=== PATIENT | female | born 2005 | race Caucasian/White ===

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

== ENCOUNTER → 2025-01-11 | Emergency (ER) | payer OTHER, SELFPAY ==
[~2025-01-11] MED LIST: Bacitracin 1 PK ONE; Ketorolac Tromethamine 30 MG (1 mL) VIAL ONE
== END ==
LOC: ERS 08:17
DX: S50.812A Abrasion of left forearm, initial encounter (principal); S80.812A Abrasion, left lower leg, initial encounter; S80.811A Abrasion, right lower leg, initial encounter; S80.212A Abrasion, left knee, initial encounter; S80.211A Abrasion, right knee, initial encounter; V89.2XXA Person injured in unspecified motor-vehicle accident, traffic, initial encounter
CPT/HCPCS: 72100; 96372; 99284; J1885